=== PATIENT | male | born 1940 | race Caucasian/White ===

== ENCOUNTER → 2017-08-01 | Outpatient (CLI) | payer MEDICARE, BC ==
[~2017-08-01] MED LIST: NORVASC PO; ZYRTEC10 M2 PO
--- NOTE | ~2017-08-01 | US37 ---
[facility] RADIOLOGY TEXT RESULTS PATIENT: KRISTIN VALVERDE LOCATION: SNIV : 42 UNIT #: [id number] AGE: [address]: RALF RYDER SEX: M ORDER DR: [id number] [place] [id number] O MR#: [id number] Acc #: [id number] NAME: KRISTIN VALVERDE : 1940 SEX: M STUDY DATE/TIME: 08/01/2017 10:35 UNIT: SNIV ROOM: STUDY DESCRIPTION: US Carotid W/Doppler Bilateral Attending Physician: Ralf Ryder Referring Physician: Ralf Ryder Ordering Physician: Ralf Rollins Od Primary Care Physician: Manny Landon Jr., M.D. MEDICAL IMAGING REPORT This report is preliminary unless electronic signature is present. EXAM Carotid Doppler, 08/01/2017 CLINICAL HISTORY Episode of amaurosis fugax. PROCEDURE Rodriguez-scale imaging, color-Doppler flow imaging and Doppler waveform analysis. FINDINGS There is some noncalcified nonshadowing plaque on rodriguez-scale in the right carotid system, though there is no definite plaque demonstrated on rodriguez-scale in the left carotid system. There is antegrade color flow in both common and internal and external carotid and vertebral arteries. On the right, internal carotid peak systolic velocity is 46 cm/sec with a brisk systolic upstroke. On the left, internal carotid peak systolic velocity is 42 cm/sec with a brisk systolic upstroke. IMPRESSION 1. Rodriguez-scale evidence of plaque in both carotid systems with less than 50% stenosis in both internal carotids by NASCET criteria. 2. Antegrade flow in both external carotid and vertebral arteries. [facility] RADIOLOGY TEXT RESULTS PATIENT: KRISTIN VALVERDE LOCATION: SNIV : 42 UNIT #: [id number] AGE: [address]: RALF RYDER SEX: M ORDER DR: Dictated by... Dany Coburn M.D. THIS IS AN ELECTRONICALLY VERIFIED REPORT Dany Coburn M.D. at 08/05/2017 7:33 AM JOE/roseline TD: 08/01/2017 23:44 JOB #: [id number] MEDICAL IMAGING REPORT Page 1 of 1
[2017-08-01 10:20] LABS: CALCIUM SERUM 8.4 mg/dL (8.4-10.2); GLOM FILT RATE Estimated 73.8 mL/min (>60); POTASSIUM 4.3 mmol/L (3.5-5.1)
[2017-08-01 10:31] LABS: BASOPHIL# 0.1 X10e3 (0-0.3); BASOPHIL% 1.2 % (0-2.5); EOSINOPHIL# 0.2 X10e3 (0-0.7); EOSINOPHIL% 3.5 % (0.0-7.0); HEMATOCRIT 42.9 % (38.0-50.0); HEMOGLOBIN 14.6 gm/dL (13.0-16.0); LYMPHOCYTE# 1.5 X10e3 (1.0-3.5); LYMPHOCYTE% 31.6 % (17.0-45.0); MEAN CELL VOLUME 87.9 FL (83-96); MEAN CORPUSCULAR HEMOGLOBIN 29.9 PG (28-34); MEAN PLATELET VOLUME 7.1 FL (6.5-11.5); MONOCYTE# 0.6 X10e3 (0-1.0); MONOCYTE% 12.4 % (3.0-12.0); NEUTROPHIL# 2.4 X10e3 (1.5-7.1); NEUTROPHIL% 51.3 % (40-75); PLATELET COUNT 156 X10e3 (140-420); RED BLOOD COUNT 4.88 X10e (3.90-5.60); RED CELL DISTRIBUTION WIDTH 13.9 % (11.0-15.5); WHITE BLOOD COUNT 4.7 X10e3 (4.0-10.5)
[2017-08-01 10:40] LABS: DIFF IND NO
[2017-08-01 12:38] LABS: SEDIMENTATION RATE-SW ONLY 4 mm/hr (0-40)
== END | disposition home or self-care (01) ==
LOC: SNIV 09:53
PROVIDERS: Optometrist
DX: H18.51 Endothelial corneal dystrophy (principal); H26.493 Other secondary cataract, bilateral; H43.813 Vitreous degeneration, bilateral; H53.8 Other visual disturbances; I65.23 Occlusion and stenosis of bilateral carotid arteries
CPT/HCPCS: 36415; 80048; 85025; 85651; 86140; 93880